=== PATIENT | female | born 1985 | race Caucasian/White ===

== ENCOUNTER 2017-02-15 20:28 | Emergency (ER) | payer OTHER ==
[~2017-02-15] VITALS: Ht 157.5 cm; Wt 56.0 kg
[~2017-02-15 20:28] MED LIST: Z.0.NO CURRENT MEDS
[2017-02-15 20:29] VITALS: BP 131/69; PULSE 81; RESP 16; TEMP 98.9; O2SAT 100
[2017-02-15] MEDS ORDERED: JUNETAB2 PO (20:37)
[2017-02-15] MEDS ORDERED: DICL75TA PO (20:54)
[2017-02-15] MEDS ORDERED: BACL10TA PO (20:54)
--- NOTE | 2017-02-15 20:59 | PD ---
HPI Chief Complaint: Back/ Neck Pain or Injury Time Seen by Provider: 20:45 Travel History International Travel<30 days: Yes Contact w/Intl Traveler<30days: Yes Name of Country Traveled to: [facility] Traveled to known affect area: No History of Present Illness HPI This is a 31-year-old female who presents for evaluation of neck pain. Symptoms started 2 days ago. She reports that the pain is primarily in the trapezius musculature region and seems to shoot down the right arm. The pain is a sharp pain that is constant and worse with movement. She denies any specific injury. She reports that she has had similar symptoms in the past primarily in the left arm which typically resolve after a few days of rest. She denies any strenuous activity. 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 She denies any IV drug abuse, fevers, recent illness. She has used occasional ibuprofen for symptom relief. She has no other complaints at this time. PFSH Past Medical History Autoimmune Disease: No Blood Disorders: No Anxiety: No Depression: No Cancer: No Cardiovascular Problems: No Chemotherapy: No Diabetes: No Diminished Hearing: No Endocrine: No Glaucoma: No Genitourinary: No Immune Disorder: No Musculoskeletal: No Neurologic: No Psychiatric: No Reproductive: No Respiratory: No Radiation Therapy: No Sickle Cell Disease: No Thyroid Disease: No Past Surgical History Abdominal Surgery: Yes () AICD: No Arteriovenous Shunt: No Cardiac Surgery: No Ear Surgery: No Endocrine Surgery: No Eye Surgery: No Genitourinary Surgery: No Gynecologic Surgery: No Insulin Pump: No Joint Replacement: No Oral Surgery: No Pacemaker: No Thoracic Surgery: No Social History Alcohol Use: Yes (SOCIALLY FEW DRINKS) Tobacco Use: Yes (UNDER 1/2 PACK) Substance Use: Yes (SMOKE POT SOMETIMES) Allergies-Medications (Allergen,Severity, Reaction): Coded Allergies: No Known Allergies (Verified Adverse Reaction, Unknown, 02/15/17) Reported Meds & Prescriptions Reported Meds & Active Scripts Active Baclofen 10 Mg Tab 10 Mg PO Q8HR [address] (Diclofenac Sodium) 75 Mg Tabdr 75 Mg PO BID 10 Days Reported .08/26 (Norethindrone-Ethinyl Estradiol) 1.5-30 Mg-Mcg Tab 1 Tab PO DAILY Review of Systems Except as stated in HPI: all other systems reviewed are Neg Physical Exam Narrative GENERAL: Well developed well-nourished female in no acute distress SKIN: Warm and dry. HEAD: Atraumatic. Normocephalic. EYES: Pupils equal and round. No scleral icterus. No injection or drainage. ENT: No nasal bleeding or discharge. Mucous membranes pink and moist. NECK: Trachea midline. No JVD. No lymphadenopathy. CARDIOVASCULAR: Regular rate and rhythm. No murmur appreciated. RESPIRATORY: No accessory muscle use. Clear to auscultation. Breath sounds equal bilaterally. MUSCULOSKELETAL: No obvious deformities. Tender to palpation in the right trapezius musculature. There is no tenderness to palpation along the cervical midline spine. The patient maintains full range of motion of the neck. She has 5 out of 5 muscle strength in the upper extremities. There is no upper extremity edema. 2+ radial pulses bilaterally. NEUROLOGICAL: Awake and alert. No obvious cranial nerve deficits. Motor grossly within normal limits. Normal speech. Data Data Last Documented VS Vital Signs Date Time Temp Pulse Resp B/P (MAP) Pulse Ox O2 Delivery O2 Flow Rate FiO2 02/15/17 20:29 98.9 81 16 131/69 (89) 100 Room Air Orders Orders Ketorolac Inj (Toradol Inj) (02/15/17 21:00) Orphenadrine Inj (Norflex Inj) (02/15/17 21:00) Ed Discharge Order (02/15/17 20:53) MDM Medical Decision Making Medical Screen Exam Complete: Yes Emergency Medical Condition: Yes Medical Record Reviewed: Yes Differential Diagnosis Herniated pulposus, cervical radiculopathy, spinal stenosis, epidural abscess, muscle spasm Narrative Course Physical examination is reassuring. She appears to have cervical radiculopathy. The patient will be treated symptomatically with a short course of NSAIDs, muscle relaxants, recommend follow-up with primary care physician. Diagnosis Primary Impression: Cervical radiculopathy Additional Instructions: Medication as prescribed. Do not drive or drink alcohol and taking baclofen. Take diclofenac with meals. Avoid strenuous activity that increases her pain. Follow-up in 2 weeks with primary care physician for recheck. Return for any emergent medical conditions. Med/Other Pt SpecificInfo: Prescription(s) given Scripts Baclofen (Baclofen) 10 Mg Tab 10 MG PO Q8HR for 10 Days, TAB 0 Refills Prov: Ben Maxwell MD 02/15/[address] (Diclofenac Sodium DR) 75 Mg Tabdr 75 MG PO BID for 10 Days, #20 TAB 0 Refills Prov: Ben Maxwell MD 02/15/17 Disposition: 01 DISCHARGE HOME Condition: Stable Vipin Hicks Feb 15, 2017 20:59
[2017-02-15] MEDS ORDERED: ORPHENADRINE INJ 60 MG/2 ML AMP IM ONE (21:00)
[2017-02-15] MEDS ORDERED: KETOROLAC TROMETHAMINE 60 MG/2 ML (IM) VIAL IM ONE (21:00)
== END 2017-02-15 21:15 | disposition home or self-care (01) ==
LOC: NEPC 20:28
DX: M54.12 Radiculopathy, cervical region (principal); F17.200 Nicotine dependence, unspecified, uncomplicated; Z79.899 Other long term (current) drug therapy
CPT/HCPCS: 96372; 99284; J1885; J2360